=== PATIENT | female | born 1960 | race Two or more races ===

== ENCOUNTER 2018-03-02 15:19 | Emergency (ER) | payer OTHER ==
[~2018-03-02] VITALS: Ht 162.6 cm; Wt 97.5 kg
[2018-03-02] MEDS ORDERED: METFORMIN HCL500 MG PO (15:33)
== END 2018-03-02 19:55 | disposition home or self-care (01) ==
LOC: ER 15:19
DX: S33.5XXA Sprain of ligaments of lumbar spine, initial encounter (principal); W18.39XA Other fall on same level, initial encounter; Y93.89 Activity, other specified; Y92.098 Other place in other non-institutional residence as the place of occurrence of the external cause; Y99.8 Other external cause status

== ENCOUNTER → 2020-07-21 10:37 | Outpatient (CLI) | payer OTHER ==
[~2020-07-21 10:37] MED LIST: METFORMIN HCL500 MG PO
== END | disposition home or self-care (01) ==
LOC: LAB 10:37
PROVIDERS: ATTEND Radiology Diagnostic Radiology
DX: R10.84 Generalized abdominal pain (principal)

== ENCOUNTER 2020-07-22 07:21 | Outpatient (CLI) | payer OTHER | END 2020-07-22 07:27 | disposition home or self-care (01) | LOC: TOM 07:21 | DX: K76.0 Fatty (change of) liver, not elsewhere classified (principal); R10.84 Generalized abdominal pain; R16.0 Hepatomegaly, not elsewhere classified; D25.9 Leiomyoma of uterus, unspecified ==